=== PATIENT | female | born 1995 | race Caucasian/White ===

== ENCOUNTER 2016-12-04 17:43 | Emergency (ER) | payer SELFPAY ==
[2016-12-04 18:19] VITALS: BP 145/82
[2016-12-04] MEDS ORDERED: NORMAL SALINE 1000 ML 1,000 ML IV ONE (20:04)
[2016-12-04] MEDS ORDERED: KETOROLAC TROMETHAMINE INJ/PF 30 MG/1 ML SDV IV ONE (20:04)
--- NOTE | 2016-12-04 20:05 | ER Document Report ---
ED Medical Screen (RME) - General Chief Complaint: Abdominal Pain >50 Stated Complaint: ABDOMINAL PAIN Time Seen by Provider: 12/04/16 20:04 Notes: Patient complains of 2 days of suprapubic cramping abdominal pain. She denies any vaginal bleeding or discharge. No problems with urination or bowel movements. She has had no vomiting. She has had a decreased appetite. She states she has not had a menstrual cycle in 2 years secondary to control. She does not believe that she is currently . TRAVEL OUTSIDE OF THE [place] IN LAST 30 DAYS: No - Related Data Allergies/Adverse Reactions: No Known Allergies Allergy (Unverified 06/02/14 20:12) Past Medical History Renal/ Medical History: Denies: Hx Peritoneal Dialysis - Immunizations Immunizations up to date: Yes Physical Exam - Vital signs Vitals: Temp Pulse Resp BP Pulse Ox 98 F 101 H 18 145/82 H 99 12/04/16 18:14 12/04/16 18:14 12/04/16 18:14 12/04/16 18:14 12/04/16 18:14 Course - Vital Signs Vital signs: Temp Pulse Resp BP Pulse Ox 98 F 101 H 18 145/82 H 99 12/04/16 18:14 12/04/16 18:14 12/04/16 18:14 12/04/16 18:14 12/04/16 18:14
[2016-12-04 20:52] LABS: ABSOLUTE EOSINOPHILS # (AUTO) 0.1 10^3/uL (0.0-0.6); ABSOLUTE LYMPHOCYTES (AUTO) 1.5 10^3/uL (0.5-4.7); ABSOLUTE MONOCYTES (AUTO) 0.7 10^3/uL (0.1-1.4); ABSOLUTE NEUT (AUTO) 8.1 10^3/uL (1.7-8.2); BASOPHILS % (AUTO) 0.4 % (0-2); EOSINOPHILS % (AUTO) 0.6 % (0-6); HEMOGLOBIN 11.5 g/dL (12.0-15.5); HGB HCT DIFFERENCE 1.5; LYMPHOCYTES % (AUTO) 14.7 % (13-45); MEAN CORPUSCULAR HEMOGLOBIN 29.7 pg (27.0-33.4); MEAN CORPUSCULAR HGB CONC 34.7 g/dL (32.0-36.0); MEAN CORPUSCULAR VOLUME 86 fl (80-97); MONOCYTES % (AUTO) 6.6 % (3-13); RED BLOOD COUNT 3.85 10^6/uL (3.72-5.28); RED CELL DISTRIBUTION WIDTH 13.7 % (11.5-14.0); SEGMENTED NEUTROPHILS % (AUTO) 77.7 % (42-78); WHITE BLOOD COUNT 10.5 10^3/uL (4.0-10.5)
[2016-12-04 20:58] LABS: APPEARANCE,URINE CLEAR; BILIRUBIN,URINE NEGATIVE (NEGATIVE); GLUCOSE, URINE NEGATIVE (NEGATIVE); KETONES,URINE 20 mg/dL (NEGATIVE); LEUKOCYTE ESTERASE,URINE SMALL (NEGATIVE); NITRITE,URINE NEGATIVE (NEGATIVE); PROTEIN,URINE NEGATIVE (NEGATIVE); URINE SPECIFIC GRAVITY 1.009; UROBILINOGEN,URINE NEGATIVE mg/dL (<2.0)
[2016-12-04] MEDS ORDERED: MORPHINE SULFATE 10 MG/ML INJ IV ONE (21:05)
--- NOTE | 2016-12-04 21:09 | ER Document Report ---
ED GI/ - General Mode of Arrival: Ambulatory Information source: Patient TRAVEL OUTSIDE OF THE [place] IN LAST 30 DAYS: No - HPI Patient complains to provider of: Abdominal pain. No: Dysuria, Hematuria, Vaginal bleeding, Vaginal discharge, Vomiting Onset: Other - 2 nights ago Location: Suprapubic Sexual history: Active, Condoms. denies: Depo Associated symptoms: Other - see notes above <FÉLIX FITCH - Last Filed: 12/04/16 23:00> <ESTRADA CERNA - Last Filed: 12/04/16 23:01> - General Chief Complaint: Abdominal Pain >50 Stated Complaint: ABDOMINAL PAIN Time Seen by Provider: 12/04/16 20:04 Notes: 21 year old female with no prior medical problems presents to the ED complaining of intermittent progressively worsening suprapubic abdominal pain that started 2 nights ago. Patient describes the pain as 'cramping' and that she has a 'annetta horse' in her stomach. Patient is additionally complaining of sweaty palms and feet and mild pain to the lower back. Patient denies fever, dysuria, nausea, vomiting, diarrhea, hematuria, frequency, vaginal bleeding or discharge, or trouble with bowel movements. Patient has taken Ibuprofen for mild relief when she sleeps. Patient is sexually active and uses condoms. Patient denies history of abdominal surgery. Patient stopped taking the Depo shot in March 2016 and hasn't had a menstrual period since 2014. (FÉLIX FITCH ) - Related Data Allergies/Adverse Reactions: No Known Allergies Allergy (Unverified 06/02/14 20:12) Past Medical History - General Information source: Patient - Social History Smoking Status: Never Smoker Chew tobacco use (# tins/day): No Frequency of alcohol use: None Drug Abuse: None Family History: Reviewed & Not Pertinent Patient has suicidal ideation: No Patient has homicidal ideation: No - Medical History Medical History: Negative Renal/ Medical History: Denies: Hx Peritoneal Dialysis Surgical Hx: Negative Past Surgical History: Denies: Hx Abdominal Surgery - Immunizations Immunizations up to date: Yes <FÉLIX FITCH - Last Filed: 12/04/16 23:00> Review of Systems - Review of Systems Constitutional: See HPI, Diaphoresis - palms and feet. denies: Fever EENT: No symptoms reported Cardiovascular: No symptoms reported Respiratory: No symptoms reported Gastrointestinal: See HPI, Abdominal pain - suprapubic. denies: Diarrhea, Nausea, Vomiting Genitourinary: No symptoms reported. denies: Dysuria, Frequency, Hematuria Female Genitourinary: See HPI, Last menstrual period - 2014 Musculoskeletal: See HPI, Back pain - lower back Skin: No symptoms reported Hematologic/Lymphatic: No symptoms reported Neurological/Psychological: No symptoms reported -: Yes All other systems reviewed and negative <FÉLIX FITCH - Last Filed: 12/04/16 23:00> - Vital signs Vitals: Temp Pulse Resp BP Pulse Ox 98 F 101 H 18 145/82 H 99 12/04/16 18:14 12/04/16 18:14 12/04/16 18:14 12/04/16 18:14 12/04/16 18:14 - Notes Notes: GENERAL: Alert, interacts well. Appears uncomfortable. HEAD: Normocephalic, atraumatic. EYES: Pupils equal, round, and reactive to light. Extraocular movements intact. ENT: Oral mucosa moist, tongue midline. NECK: Full range of motion. Supple. Trachea midline. LUNGS: Clear to auscultation bilaterally, no wheezes, rales, or rhonchi. No respiratory distress. HEART: Regular rate and rhythm. No murmurs, gallops, or rubs. ABDOMEN: Soft. Bowel sounds present in all 4 quadrants. Semi-firm and tenderness to palpation at the level of the umbilicus that extends suprapubically. There is no tenderness to the LLQ or RLQ, but midline is particularly tender. EXTREMITIES: Moves all 4 extremities spontaneously. No edema, radial pulses 2/4 bilaterally. No cyanosis. NEUROLOGICAL: Alert and oriented x3. Normal speech. PSYCH: Normal affect, normal mood. SKIN: Warm, dry, normal turgor. No rashes or lesions noted. (FÉLIX FITCH) Course - Laboratory Result Diagrams: 12/04/16 20:32 12/04/16 20:32 <FÉLIX FITCH - Last Filed: 12/04/16 23:00> - Laboratory Result Diagrams: 12/04/16 20:32 12/04/16 20:32 <ESTRADA CERNA - Last Filed: 12/04/16 23:01> - Re-evaluation Re-evalutation: 12/04/16 22:23 Estimated due date is 12/24/2016, she is 37 weeks and 1 day along, heart rate patient informed that she is I suspect she is in labor, she is stable for transfer to labor and delivery, discussed patient with nurse (Lisset) on labor and delivery, who agrees patient can be transferred to labor and delivery. Patient will receive RhoGam, initially accident gave the order to not give RhoGam as I was distracted, I have apologized for this and RhoGam is being ordered for this patient who is O-. Patient, boyfriend and stepmother are all aware that the patient is . 12/04/16 22:25 (ESTRADA CERNA) - Vital Signs Vital signs: Temp Pulse Resp BP Pulse Ox 98 F 101 H 18 145/82 H 99 12/04/16 18:14 12/04/16 18:14 12/04/16 18:14 12/04/16 18:14 12/04/16 18:14 - Laboratory Laboratory results interpreted by me: 12/04/16 12/04/16 12/04/16 20:21 20:21 20:21 Hgb Hct Carbon Dioxide Alkaline Phosphatase Serum HCG, Qual POSITIVE H Beta HCG, Quant 2249.10 H Urine Ketones 20 H Urine Blood SMALL H Ur Leukocyte Esterase SMALL H Urine HCG, Qual POSITIVE H 12/04/16 12/04/16 20:32 20:32 Hgb 11.5 L Hct 33.0 L Carbon Dioxide 21 L Alkaline Phosphatase 179 H Serum HCG, Qual Beta HCG, Quant Urine Ketones Urine Blood Ur Leukocyte Esterase Urine HCG, Qual Discharge <FÉLIX FITCH - Last Filed: 12/04/16 23:00> - Discharge Unit Admitted: Labor and Delivery <ESTRADA CERNA - Last Filed: 12/04/16 23:01> - Discharge Clinical Impression: Third trimester , No care in current in third trimester Condition: Stable Disposition: LABOR CHECK Scribe Attestation: 12/04/16 23:01 I personally performed the services described in the documentation, reviewed and edited the documentation which was dictated to the scribe in my presence, and it accurately records my words and actions. (ESTRADA CERNA) Scribe Documentation - Scribe Written by Scribe:: Sonido Nunn, 12/04/2016 2136 acting as scribe for :: Cleve <FÉLIX FITCH - Last Filed: 12/04/16 23:00>
[2016-12-04 21:11] LABS: ALANINE AMINOTRANSFERASE 31 U/L (9-52); ALBUMIN 4.3 g/dL (3.5-5.0); ALKALINE PHOSPHATASE 179 U/L (38-126); ANION GAP 14 (5-19); ASPARTATE AMINO TRANSFERASE 19 U/L (14-36); BILIRUBIN,DIRECT 0.4 mg/dL (0.0-0.4); BILIRUBIN,TOTAL 0.6 mg/dL (0.2-1.3); BLOOD UREA NITROGEN 7 mg/dL (7-20); CALCIUM 10.2 mg/dL (8.4-10.2); CARBON DIOXIDE 21 mmol/L (22-30); CHLORIDE 106 mmol/L (98-107); CREATININE RESULT 0.68 mg/dL (0.52-1.25); GLUCOSE 89 mg/dL (75-110); POTASSIUM 4.5 mmol/L (3.6-5.0); TOTAL PROTEIN 7.3 g/dL (6.3-8.2)
--- NOTE | 2016-12-04 23:24 | RADIOLOGY REPORT (SQ) ---
EXAM DESCRIPTION: U/S OB 14+ TRNABD 1GES W/O DOP COMPLETED DATE/TIME: 12/04/2016 10:12 pm REASON FOR STUDY: abd pain, , dates uncertain COMPARISON: None. TECHNIQUE: Static and Dynamic grayscale imaging performed of gravid uterus using transabdominal appr oach. Additional selected color Doppler and spectral images recorded. All stored on PACS. LIMITATIONS: Late gestational age. FINDINGS: EGA: 37 weeks 1 day based on biometrics. ARTIS: 12/24/2016 EFW: 3119 +/- 462 grams PERCENTILE: Not determined. DARIAN: 3.5-cm PLACENTA: Anterior PRESENTATION: Cephalic. ANATOMY: HEART RATE: 133 beats per minute. FOUR CHAMBER HEART: Not visualized. THREE VESSEL CORD: Not visualized. CORD INSERTION: Not visualized. KIDNEYS AND BLADDER: Kidneys not visualized. bladder visualized. STOMACH: Visualized. Appears normal. SPINE: Not adequately visualized. BRAIN AND LATERAL VENTRICLES: Not adequately visualized. OTHER: Limited. MATERNAL ADNEXA: Maternal ovaries not visualized. CERVICAL LENGTH: Not applicable. Greater than 20 weeks. Need transvaginal study if indicated. OTHER: No other significant finding. IMPRESSION: Oligohydramnios. DARIAN is 3.5-cm. LIVING INTRAUTERINE . ESTIMATED GESTATIONAL AGE 37 weeks and 1 day. Limited anatomic survey. Trimester of : III TECHNICAL DOCUMENTATION: JOB ID: [id number] [employer]- All Rights Reserved
== END 2016-12-04 22:54 | disposition admitted as inpatient to this hospital (09) ==
LOC: ER 17:43
DX: O09.33 Supervision of pregnancy with insufficient antenatal care, third trimester (principal); M54.5 Low back pain; R10.9 Unspecified abdominal pain; R61 Generalized hyperhidrosis; Z3A.37 37 weeks gestation of pregnancy
CPT/HCPCS: 99284; 96372; 96361; 96374; 96375; 86900; 86901; 36415; 86850; 84702; 84703; 85025; 81025; 80053; 81001; 76805; J2790; J1885; J2270; J7030

== ENCOUNTER 2016-12-04 22:22 | Inpatient (IN) | payer MEDICAID ==
[2016-12-04] MEDS ORDERED: RINGERS SOLUTION,LACTATED 1,000 ML IV PRN (23:06)
[2016-12-04] MEDS ORDERED: RINGERS SOLUTION,LACTATED 1,000 ML IV ONE (23:06)
[2016-12-04 23:21] LABS: APPEARANCE,URINE SLIGHTLY-CLOUDY; BILIRUBIN,URINE NEGATIVE (NEGATIVE); GLUCOSE, URINE NEGATIVE (NEGATIVE); KETONES,URINE 80 mg/dL (NEGATIVE); LEUKOCYTE ESTERASE,URINE TRACE (NEGATIVE); NITRITE,URINE NEGATIVE (NEGATIVE); PROTEIN,URINE 100 mg/dL (NEGATIVE); URINE SPECIFIC GRAVITY 1.023; UROBILINOGEN,URINE NEGATIVE mg/dL (<2.0)
[2016-12-04 23:30] LABS: AMNISURE (ROM) NEGATIVE (NEGATIVE)
[2016-12-04] MEDS ORDERED: EPHEDRINE SULFATE INJ 50 MG/1 ML AMPULE ONE (23:39)
[2016-12-04] MEDS ORDERED: FENTANYL/BUPIVACAINE/NS/PF 200 MCG/100 ML RTUINJ EPI ONE (23:39)
[2016-12-04] MEDS ORDERED: BUPIVACAINE HCL 0.25 % INJ/PF (2.5 MG/1 ML) 30 ML VIAL ONE (23:39)
[2016-12-04 23:42] LABS: URINE BARBITURATES SCREEN NEGATIVE; URINE METHADONE SCREEN NEGATIVE; URINE PHENCYCLIDINE SCREEN NEGATIVE
[2016-12-04 23:52] LABS: URINE OPIATES LOW UNCONFIRMED POSITIVE
[2016-12-04 23:54] LABS: LDH 378 U/L (313-618); URIC ACID 3.9 mg/dL (2.5-6.2)
[2016-12-05] MEDS ORDERED: PENICILLIN G POTASSIUM 5,000,000 UNIT in DEXTROSE 5%-WATER 100 ML IV ONE (00:30)
[2016-12-05 00:38] LABS: ADD HIVPANEL? NO; HIV (1 AND 2) ANTIBODY NEGATIVE (NEGATIVE)
[2016-12-05 00:40] LABS: URINE CREATININE 200.6 mg/dL (16-327); URINE PROTEIN 61.4 mg/dL (<12)
[2016-12-05] MEDS ORDERED: PENICILLIN G-K 5 MILLION UNIT VIAL ONE ×2 (00:46→04:22)
[2016-12-05 00:53] LABS: CHLAM PCR NOT DETECTED (NOT DETECT)
[2016-12-05] MEDS ORDERED: OXYTOCIN/NORMAL SALINE 20 UNIT/1,000 ML RTUINJ ONE ×2 (03:29→05:38)
[2016-12-05] MEDS ORDERED: PENICILLIN G POTASSIUM 2,500,000 UNIT in DEXTROSE 5%-WATER 50 ML IV SCH (04:30)
[2016-12-05] MEDS ORDERED: LIDOCAINE 1% INJ-PF (10 MG/ML) 30 ML SDV ONE (05:38)
[2016-12-05] MEDS ORDERED: MISOPROSTOL 0.2 MG TABLET ONE (05:38)
[2016-12-05] MEDS ORDERED: LIDOCAINE 2% INJ-PF (20 MG/ML) 10 ML AMPUL ONE (06:47)
[2016-12-05] MEDS ORDERED: FENTANYL/BUPIVACAINE/NS/PF 0 MCG/0 ML RTUINJ EPI ONE (08:14)
[2016-12-05] MEDS ORDERED: PSEUDOEPHEDRINE HCL 30 MG TABLET PO PRN (09:16)
[2016-12-05] MEDS ORDERED: BENZOCAINE/MENTHOL AEROSOL SPRAY 56 ML TOP PRN (09:16)
[2016-12-05] MEDS ORDERED: OXYTOCIN/NORMAL SALINE 20 UNIT/1,000 ML RTUINJ IV PRN (09:16)
[2016-12-05] MEDS ORDERED: PROMETHAZINE HCL 25 MG TABLET PO PRN (09:16)
[2016-12-05] MEDS ORDERED: DIPHENHYDRAMINE HCL 25 MG CAPSULE PO PRN (09:16)
[2016-12-05] MEDS ORDERED: PROMETHAZINE HCL INJ 25 MG/1 ML VIAL IV PRN (09:16)
[2016-12-05] MEDS ORDERED: DIPH/PERTUSS(ACELL)/TETANUS VAC/PF 0.5 ML SYR (>=10YO) IM PRN (09:16)
[2016-12-05] MEDS ORDERED: MAGNESIUM HYDROXIDE SUSP 30 ML UDCUP PO PRN (09:16)
[2016-12-05] MEDS ORDERED: MEASLES,MUMPS&RUBELLA VACC/PF 0.5 ML VIAL SUBCUT PRN (09:16)
[2016-12-05] MEDS ORDERED: NA PHOS,M-B/NA PHOS,DI-BA (ADULT) 133 ML ENEMA PR PRN (09:16)
[2016-12-05] MEDS ORDERED: DIBUCAINE 1% OINTMENT 28 GM TP PRN (09:16)
[2016-12-05] MEDS ORDERED: MISOPROSTOL 0.2 MG TABLET PR PRN (09:16)
[2016-12-05] MEDS ORDERED: ACETAMINOPHEN 650 MG SUPP.RECT PR PRN (09:16)
[2016-12-05] MEDS ORDERED: PROMETHAZINE HCL 25 MG SUPP.RECT PR PRN (09:16)
[2016-12-05] MEDS ORDERED: ACETAMINOPHEN WITH CODEINE #3 TABLET PO PRN ×2 (09:16)
[2016-12-05] MEDS ORDERED: GLYCERIN/WITCH HAZEL LEAF 1 EACH MED..PAD TP PRN (09:16)
[2016-12-05] MEDS ORDERED: IBUPROFEN 800 MG TABLET ONE (09:22)
--- NOTE | 2016-12-05 10:41 | Delivery Summary ---
Del Sum A-C Datetime Report Generated by CPN: 12/05/2016 10:40 DELIVERY PERSONNEL DELIVERY PERSONNEL: [id number] Delivery Doctor:: Anca Vincent CNM Nurse Cut Tobacco Bulker Certified:: Anca Vincent CNM Labor and Delivery Nurse:: Laure Edmondson RNfireworks display specialist Nurse:: Sierra Mckeon RN Accounts Payable Manager/FAMILY RESOURCE COORDINATOR: Kailey Chavarria BACON SKINNER MATERNAL INFORMATION Delivery Anesthesia: Epidural Medications After Delivery: Pitocin Bolus-Please Comment; Pitocin Drip 20 Units/1000ml NSS; Cytotec 600mcg Per Rectum/Vagina Estimated Blood Loss (ml): 300 Maternal Complications: Other Other Maternal Complications: no care Confirmed yesterday Provider Comments: viable female from OA to TOMASA, compound hand presentation over intact perineum left periuretral abrasion, placed on mother abd and cord clamped and cut by father after 2 minutes. cord blood obtained and sent to lab, spont delivery of grossly normal intact placenta, 3 VC, ebl 300 cc, uterine atony resolved with massage, cytotec 600 mcg and Pitocin Baby and mom remain in recovery in stable condition Placenta sent to lab for evaluation No care, just found out she was last night (Annotations: Data stored by CPN on behalf of user) LABOR SUMMARY EDC: 12/24/2016 00:00 No. Babies in Womb: 1 Attempted: No Labor Anesthesia: Epidural LABOR INFORMATION Reason for Induction: Not Applicable Onset of Labor: 12/04/2016 22:58 Complete Dilatation: 12/05/2016 08:19 Oxytocin: Augmentation Group B Beta Strep: Unknown Antibiotics # of Doses: 2 Antibiotics Time of Last Dose: 0430 Name of Antibiotic Given: Penicillin Steroids Given: None Reason Steroids Not Administered: Not Applicable MEMBRANES Membranes Rupture Method: Artificial Rupture of Membranes: 12/05/2016 08:35 Length of Rupture (hr): 0.37 Amniotic Fluid Color: Clear Amniotic Fluid Amount: Small Amniotic Fluid Odor: Normal STAGES OF LABOR Stage 1 hr: 9 Stage 1 min: 21 Stage 2 hr: 0 Stage 2 min: 38 Stage 3 hr: 0 Stage 3 min: 4 Total Time in Labor hr: 10 Total Time in Labor min: 3 VAGINAL DELIVERY Episiotomy: None Laceration #1: None Laceration Extension #1: N/A Other Laceration: Superficial periurethral Laceration Repair: Not Applicable Sponge Count Correct: N/A CSECTION DELIVERY Primary Indication: N/A Secondary Indication: N/A CSection Incidence: N/A Labor: N/A Elective: N/A CSection Incision: N/A BABY A INFORMATION Delivery Date/Time: 12/05/2016 08:57 Method of Delivery: Vaginal Born in Route : No : N/A Forceps: N/A Vacuum Extraction: N/A Shoulder Dystocia : No PRESENTATION/POSITION BABY A Presentation: Cephalic Cephalic Presentation: Vertex Vertex Position: Right Occipital Anterior Breech Presentation: N/A PLACENTA INFORMATION BABY A Placenta Delivery Time : 12/05/2016 09:01 Placenta Method of Delivery: Spontaneous Placenta Status: Delivered SCORES BABY A Heart Rate 1 min: >100 bpm Resp Effort 1 min: Good Cry Reflex Irritability 1 min: Cough or Sneeze or Pulls Away Muscle Tone 1 min: Active Motion Color 1 min: Body [place], Extremities Blue Resuscitation Effort 1 min: Tactile Stimulation SCORE 1 MIN: 9 Heart Rate 5 min: >100 bpm Resp Effort 5 min: Good Cry Reflex Irritability 5 min: Cough or Sneeze or Pulls Away Muscle Tone 5 min: Active Motion Color 5 min: Body [place], Extremities Blue Resuscitation Effort 5 min: Tactile Stimulation SCORE 5 MIN: 9 INFORMATION BABY A Gestational Age at Delivery: 37.2 Gestational Status: Early Term- 37- 38.6 Weeks Outcome : Liveborn Infant Condition : Stable Sex: Female IDENTIFICATION BABY A Verification Date/Time: 12/05/2016 09:11 ID Band Number: [id number] Mother's Name Verified: Yes Infant RN Verifying : Agatha Manuel, RN/ C. [place], RN WEIGHT/LENGTH BABY A Birthweight (gm): 3230 Infant Weight (lb): 7 Weight (oz): 2 Infant Length (in): 20.00 Infant Length (cm): 50.80 CORD INFORMATION BABY A No. Cord Vessels: 3 Nuchal Cord : N/A Cord Blood Taken: Yes-For Eval (Mom's Blood Type - or O+) Suction: Mouth; Nose ASSESSMENT BABY A Infant Complications: Oligohydramnios; Other Infant Complications- Other: Left compound hand Physical Findings at Delivery: Within Normal Limits Infant Respirations: Appears Normal Skin to Skin: Yes Band Machine Operator/ALS Called : No Care By: Corinne DUMAS Transferred To: Remains with Mother
--- NOTE | 2016-12-05 11:15 | Admission Physical ---
Datetime Report Generated by CPN: 12/05/2016 11:14 CURRENT ADMISSION Chief Complaint: Uterine Contractions Indication for Induction: Term, Intrauterine ; Active Labor Admit Impression- Other: Oligohydramnios, No care Admit Plan: Admit to Unit; Initiate Labor Protocol Admit Plan- Other: ALl labs ordered. ALLERGIES Medication Allergies: No Medication Allergies: No Known Allergies (06/02/2014) Latex: No Latex Allergies Food Allergies: N/A Environmental Allergies: N/A OBSTETRICAL HISTORY EDC: 12/24/2016 00:00 : 1 Para: 0 Term: 0 : 0 SAB: 0 IAB: 0 Ectopic: 0 Livin Cesareans: 0 VBACs: 0 Multiple Births: 0 Gestational Diabetes: Unknown Rh Sensitization: No Incompetent Cervix: No NISHA: No Infertility: No ART Treatment: No Uterine Anomaly: No IUGR: No Hx Previous C/S: No Macrosomia: No Hx Loss/Stillborn: No PIH: No Hx : No Placenta Previa/Abruption: No Depression/PP Depression: No PTL/PROM: Unknown Post Hemorrhage: No Current Procedures: None Obstetrical History Comments: [id number] did not know that she was until 12/04. SEE RECORDS Alcohol: Yes Alcohol Frequency: Occasional Advised to Stop: Yes Alcohol Comments: consumed alcohol twice during Marijuana : No Cocaine: No Other Illicit Drugs: No Cigarettes: Never Smoker. [id number] MEDICAL HISTORY Diabetes: No Blood Transfusion: No Pulmonary Disease (Asthma, TB): No Breast Disease: No Hypertension: No Crossing Tender Surgery: No Heart Disease: No Hosp/Surgery: No Autoimmune Disorder: No Anesthetic Complications: No Kidney Disease: No Abnormal Pap Smear: No Neuro/Epilepsy: No Psychiatric Disorders: No Other Medical Diseases: No Hepatitis/Liver Disease: No Significant Family History: Unknown Varicosities/Phlebitis: No Trauma/Violence : No Thyroid Dysfunction: No INFECTIOUS HISTORY Gonorrhea: No Genital Herpes: No Chlamydia: No Tuberculosis: No Syphilis: No Hepatitis: No HIV/AIDS Exposure: No Rash or Viral Illness: No HPV: No PHYSICAL EXAM General: Normal HEENT: Normal Neurologic: Normal Thyroid: Normal Heart: Normal Lungs: Normal Breast: Deferred Back: Normal Abdomen: Normal Genitourinary Exam: Normal Extremities: Normal DTRs: Normal Pelvic Type: Adequate Vital Signs: Reviewed VAGINAL EXAM Dilatation: 4 Effacement: 90 Station: -1 Contraction Comments: q 2-4 MEMBRANES Membranes: Intact FETUS A EGA: 37.1 Monitoring: External US FHR- Baseline: 135 Variability: Moderate 6-25bpm Accelerations: 15X15 Decelerations: None FHR Category: Category I Estimated Weight (gm): 3119 Presentation: Vertex Admit Comment: 21yo at 37+1ega by US today in the ED presents with abdominal pain since Sat but worsening and increasing in intensity today. Pt rec'd DepoProvera for contraception at [facility] and reports sondom use. NO care labs done. Severe Oligohydramnios noted on US and calcification of placenta - will send placenta at delivery. Pt actively kiesha and cvx 4c - admit for labor. PCN for GBS prophy as GBS unknown. Amnisure done since oligo - negative but pt with uknown if LOF. admit to L_D epidural upon pt request. Anticpate . Pelvis adequate for ALBERTO PLANS FOR LABOR AND DELIVERY Labor and Delivery: None Pain Management: Epidural Feeding Preference: Breast Benefit of Breast Feed Discussed: Yes Circumcision: Yes INFORMED CONSENT Informed Consent Obtained: Vaginal Delivery; Risks, Benefits and Alternatives Discussed Signature: with User ID: [email or web address]
[2016-12-05] MEDS ORDERED: INFLUENZA ADLT QUAD (36MOS+) 2017-18 VAC 0.5 ML SYR IM PRN (12:54)
[2016-12-05] MEDS: IBUPROFEN 800 MG TABLET PO SCH ×2 (13:27→22:12)
[2016-12-05] MEDS: PRENATAL VITAMIN W-O CA NO5/FE FUMARATE/FA CAPSULE PO SCH (13:33)
[2016-12-05] MEDS: DOCUSATE SODIUM 100 MG CAPSULE PO SCH ×2 (13:33→17:51)
[2016-12-05] MEDS: FAMOTIDINE 20 MG TABLET PO SCH ×2 (13:33→22:12)
[2016-12-05] MEDS: SENNOSIDES/DOCUSATE 8.6-50 MG 1 EACH TABLET PO SCH (13:33)
[2016-12-05] MEDS: FERROUS SULFATE 325 MG TABLET PO SCH ×2 (13:33→17:51)
[2016-12-06 04:37] LABS: HEPATITIS C VIRUS AB <0.1 s/co ratio (0.0-0.9)
[2016-12-06] MEDS: IBUPROFEN 800 MG TABLET PO SCH ×3 (05:55→22:36)
[2016-12-06 08:19] LABS: HGB HCT DIFFERENCE 1.6; MEAN CORPUSCULAR HEMOGLOBIN 30.1 pg (27.0-33.4); MEAN CORPUSCULAR HGB CONC 35.2 g/dL (32.0-36.0); MEAN CORPUSCULAR VOLUME 86 fl (80-97); RED BLOOD COUNT 3.04 10^6/uL (3.72-5.28); RED CELL DISTRIBUTION WIDTH 13.6 % (11.5-14.0); WHITE BLOOD COUNT 6.7 10^3/uL (4.0-10.5)
[2016-12-06 08:33] LABS: HEMOGLOBIN 9.2 g/dL (12.0-15.5)
[2016-12-06] MEDS: PRENATAL VITAMIN W-O CA NO5/FE FUMARATE/FA CAPSULE PO SCH (10:54)
[2016-12-06] MEDS: DOCUSATE SODIUM 100 MG CAPSULE PO SCH ×2 (10:55→17:27)
[2016-12-06] MEDS: SENNOSIDES/DOCUSATE 8.6-50 MG 1 EACH TABLET PO SCH (10:55)
[2016-12-06] MEDS: FERROUS SULFATE 325 MG TABLET PO SCH ×2 (10:55→17:27)
[2016-12-06] MEDS: FAMOTIDINE 20 MG TABLET PO SCH ×2 (10:55→22:36)
--- NOTE | 2016-12-06 11:50 | PDOC PROGRESS REPORT ---
Subjective-OB Subjective: Post Delivery Day: 1 21 year old. Denies any needs at this time, lochia stable, pain well controlled , voiding without difficulty. Physical Exam (OB) Vital Signs: Temp Pulse Resp BP Pulse Ox 97.8 F 71 18 122/68 100 12/06/16 08:34 12/06/16 08:34 12/06/16 08:34 12/06/16 08:34 12/06/16 08:34 Intake & Output 12/05/16 12/06/16 12/07/16 06:59 06:59 06:59 Weight 106.35 kg - Lochia Lochia Amount: Scant < 10 ml Lochia Color: Rubra/Red - Abdomen Description: Tender, Soft Hernia Present: No Fundal Description: Firm, Midline Fundal Height: u/u - u/2 Objective-Diagnostic Laboratory: 12/06/16 07:33 12/04/16 12/06/16 12/06/16 23:27 07:33 07:33 WBC 6.7 RBC 3.04 L Hgb 9.2 L D Hct 26.0 L MCV 86 MCH 30.1 MCHC 35.2 RDW 13.6 Plt Count 191 Blood Type O NEGATIVE Antibody Screen NEGATIVE Assessment and Plan(PN) - Assessment and Plan (1) Vaginal delivery Is this a current diagnosis for this admission?: Yes Plan: routine pp care (2) No care in current in third trimester Is this a current diagnosis for this admission?: Yes Plan: d/c planning (3) Third trimester Is this a current diagnosis for this admission?: Yes Plan: na - Time Spent with Patient Time with patient: Less than 15 minutes Critical Time spent with patient: Less than 15 minutes Medications reviewed and adjusted accordingly: Yes - Disposition Anticipated Discharge: Home Within: within 24 hours
[2016-12-07] MEDS: IBUPROFEN 800 MG TABLET PO SCH ×2 (05:36→13:56)
[2016-12-07 08:43] VITALS: BP 112/54
[2016-12-07] MEDS: PRENATAL VITAMIN W-O CA NO5/FE FUMARATE/FA CAPSULE PO SCH (10:01)
[2016-12-07] MEDS: FERROUS SULFATE 325 MG TABLET PO SCH ×2 (10:01→17:42)
[2016-12-07] MEDS: FAMOTIDINE 20 MG TABLET PO SCH (10:01)
[2016-12-07] MEDS: DOCUSATE SODIUM 100 MG CAPSULE PO SCH ×2 (10:01→17:42)
[2016-12-07] MEDS: SENNOSIDES/DOCUSATE 8.6-50 MG 1 EACH TABLET PO SCH (10:02)
--- NOTE | 2016-12-07 10:39 | PDOC DISCHARGE SUMMARY ---
Final Diagnosis Discharge Date: 12/07/16 - Final Diagnosis (1) Vaginal delivery Is this a current diagnosis for this admission?: Yes (2) No care in current in third trimester Is this a current diagnosis for this admission?: Yes Discharge Data - Discharge Medication Home Medications: Ibuprofen [Motrin 800 mg Tablet] 800 mg PO Q8 #60 tablet 12/07/16 Reason(s) for Admission: Onset of Labor Procedures: None Intrapartum Procedure(s): Spontaneous Vaginal Delivery Complication(s): Laceration-Periurethral Laceration-Degree: 1st - Diagnosis Test Laboratory: Temp Pulse Resp BP Pulse Ox 97.7 F 63 15 112/54 L 100 12/07/16 08:03 12/07/16 08:03 12/07/16 08:03 12/07/16 08:03 12/07/16 08:03 12/04/16 12/06/16 22:50 07:33 RBC 3.04 L Hgb 9.2 L D Hct 26.0 L Urine Opiates Screen UNCONFIRMED POSITIVE - Discharge information/Instructions Discharge Activity: Balance Activity w/Rest, Pelvic Rest Discharge Diet: Regular Disposition: HOME, SELF-CARE Follow [facility]: [facility] in: 4, Weeks
== END 2016-12-07 17:46 | disposition home or self-care (01) | DRG 775 ==
LOC: LC 22:22 → LR 23:09 → 2S 12-05 11:13
PROVIDERS: ADMIT Student in an Organized Health Care Education/Training Program; ATTEND Student in an Organized Health Care Education/Training Program
PROC: 10E0XZZ Delivery of Products of Conception, External Approach (ICD-10-PCS; principal; 2016-12-05)
PROC: 4A1HXCZ Monitoring of Products of Conception, Cardiac Rate, External Approach (ICD-10-PCS; 2016-12-05)
PROC: 10907ZC Drainage of Amniotic Fluid, Therapeutic from Products of Conception, Via Natural or Artificial Opening (ICD-10-PCS; 2016-12-05)
PROC: 3E0234Z Introduction of Serum, Toxoid and Vaccine into Muscle, Percutaneous Approach (ICD-10-PCS; 2016-12-06)
PROC: 3E0234Z Introduction of Serum, Toxoid and Vaccine into Muscle, Percutaneous Approach (ICD-10-PCS; 2016-12-07)
PROC: 3E0234Z Introduction of Serum, Toxoid and Vaccine into Muscle, Percutaneous Approach (ICD-10-PCS; 2016-12-07)
DX: O41.03X0 Oligohydramnios, third trimester, not applicable or unspecified (principal); O32.6XX0 Maternal care for compound presentation, not applicable or unspecified; O62.2 Other uterine inertia; O71.82 Other specified trauma to perineum and vulva; O26.893 Other specified pregnancy related conditions, third trimester; Z67.41 Type O blood, Rh negative; Z37.0 Single live birth; Z3A.37 37 weeks gestation of pregnancy; Z23 Encounter for immunization
CPT/HCPCS: 36415; 80307; 81005; 82570; 83615; 84112; 84156; 84550; 85027; 85461; 86592; 86701; 86702; 86762; 86803; 86804; 86850; 86900; 86901; 87081; 87340; 87491; 87591; 88307; 90686; 90715; 94760; J2540; J2590; J2790; J3490